=== PATIENT | female | born 1990 | race Caucasian/White ===

== ENCOUNTER → 2021-06-28 12:05 | Observation (INO) ==
[2021-06-28 08:50] LABS: Hematocrit 32.5 % (35.3-44.9); Hemoglobin 10.7 g/dL (11.5-15.4); Mean Corpuscular HGB Conc 32.9 g/dL (31.6-35.5); Mean Corpuscular Hemoglobin 26.8 pg (28.0-33.3); Mean Corpuscular Volume 81.5 fL (83.0-100.0); Mean Platelet Volume 9.4 fL (9.4-12.4); Monocytes # 0.5 K/mcL (0.0-1.3); Platelet Count 288 K/mcL (140-400); Red Blood Count 3.99 M/mcL (3.82-4.97); Red Cell Distribution Width 15.2 % (11.5-14.5); White Blood Count 12.6 K/mcL (4.3-11.1)
[2021-06-28 09:29] LABS: Anisocytosis 1+ (Not Present); Neutrophils # 10.3 K/mcL (1.6-8.9); Platelet Estimate Normal (Normal)
[2021-06-28 09:30] LABS: Reactive Lymphocytes Present (Not Present)
[~2021-06-28 12:05] MED LIST: D5% in Lactated Ringers 1,000 ML IVC SCH; Rho Immune Globulin 1,500 UNIT SYRINGE IM ONE
== END | disposition home or self-care (01) ==
LOC: 1NENULAB
PROVIDERS: ADMIT Registered Nurse; ATTEND Registered Nurse

== ENCOUNTER 2021-09-01 22:10 | Inpatient (IN) ==
[2021-09-01] MEDS ORDERED: miSOPROStoL 25 MCG TABLET PO PRN (22:41)
[2021-09-01] MEDS ORDERED: Azithromycin 500 MG in 0.9 % Sodium Chloride 250 ML IVPB PRN (22:41)
[2021-09-01] MEDS ORDERED: Metoclopramide 10 MG/2 ML VIAL IVP PRN (22:41)
[2021-09-01] MEDS ORDERED: *HR* FentaNYL (PF) 100 MCG/2 ML VIAL IVP PRN (22:41)
[2021-09-01] MEDS ORDERED: Naloxone 0.4 MG/ML INJ IVP PRN (22:41)
[2021-09-01] MEDS ORDERED: *HR* Nalbuphine 10 MG/ML AMPUL IV PRN (22:41)
[2021-09-01] MEDS ORDERED: Famotidine 20 MG/2 ML VIAL IVP PRN (22:41)
[2021-09-01] MEDS ORDERED: Penicillin G Potassium 5,000,000 UNIT in 0.9 % Sodium Chloride Mini Bag 100 ML IVPB ONE (22:45)
[2021-09-01] MEDS: Ringers Solution, Lactated 1,000 ML IVC SCH (23:04)
[2021-09-01 23:23] LABS: Basophils # 0.1 K/mcL (0.0-0.2); Basophils % 0.8 %; Eosinophils # 0.2 K/mcL (0.0-0.6); Eosinophils % 1.5 %; Hematocrit 33.4 % (35.3-44.9); Hemoglobin 11.1 g/dL (11.5-15.4); Lymphocytes # 1.6 K/mcL (0.6-4.6); Lymphocytes % 15.2 %; Mean Corpuscular HGB Conc 33.2 g/dL (31.6-35.5); Mean Corpuscular Volume 81.3 fL (83.0-100.0); Mean Platelet Volume 9.9 fL (9.4-12.4); Monocytes # 0.6 K/mcL (0.0-1.3); Monocytes % 5.4 %; Neutrophils # 7.7 K/mcL (1.6-8.9); Platelet Count 253 K/mcL (140-400); Red Blood Count 4.11 M/mcL (3.82-4.97); Red Cell Distribution Width 15.8 % (11.5-14.5); Segmented Neutrophils % 72.1 %; White Blood Count 10.7 K/mcL (4.3-11.1)
[2021-09-01 23:35] LABS: Amphetamine Screen,Urine Negative ng/mL (Cutoff=1000); Barbiturate Screen,Urine Negative ng/mL (Cutoff=200); Benzodiazepines Screen,Urine Negative ng/mL (Cutoff=200); Cannabinoid Screen,Urine Negative ng/mL (Cutoff = 50); Cocaine Screen,Urine Negative ng/mL (Cutoff= 300); Opiate Screen,Urine Negative ng/mL (Cutoff=300); Phencyclidine Screen,Urine Negative ng/mL (Cutoff=25)
[2021-09-01 23:44] LABS: Glucose 95 mg/dL (70-105)
[2021-09-02 04:51] LABS: Alanine Aminotransferase 24 Units/L (7-52); Aspartate Amino Transferase 22 Units/L (13-39); BUN/Creatinine Ratio 14 (6-26); Blood Urea Nitrogen 6 mg/dL (6-20); Creatinine,Urine 36 mg/dL; Lactate Dehydrogenase 153 Units/L (140-271); Protein/Creatinine Ratio,Urine 0.25 mg/mg (0.00-0.20); Uric Acid 5.5 mg/dL (2.3-7.6); eGFR For African Americans > 60 (> 60); eGFR For Non-African Americans > 60 (> 60)
[2021-09-02] MEDS: Penicillin G Potassium 2,500,000 UNIT/105 ML MLS IVPB SCH ×3 (04:53→13:32)
[2021-09-02] MEDS: Oxytocin 30 UNIT/503 ML BAG IVC SCH ×2 (04:57→20:06)
[2021-09-02] MEDS ORDERED: EPHEDrine 50 MG/ML VIAL IVP PRN (05:46)
[2021-09-02] MEDS ORDERED: Epidural Premix (fent/bupiv) 110 ML EP SCH (06:00)
[2021-09-02] MEDS: Ringers Solution, Lactated 1,000 ML IVC SCH (09:03)
[2021-09-02] MEDS: Ondansetron 4 MG/2 ML VIAL IVP PRN ×2 (11:16→18:49)
[2021-09-02] MEDS ORDERED: *HR* Ropivacaine/PF 0.5% 20 ML VIAL ONE (14:51)
[2021-09-02] MEDS ORDERED: Measles/Mumps/Rubella Vacc 0.5 ML VIAL SQ PRN (19:54)
[2021-09-02] MEDS ORDERED: Lanolin 7 G OINT...G. TP PRN (19:54)
[2021-09-02] MEDS ORDERED: Benzocaine/Menthol 56 GM AEROSOL SPRAY TP PRN (19:54)
[2021-09-02] MEDS ORDERED: Rho Immune Globulin 1,500 UNIT SYRINGE IM PRN (19:54)
[2021-09-02] MEDS ORDERED: Ondansetron ODT 4 MG TAB.RAPDIS SL PRN (19:54)
[2021-09-03] MEDS: Acetaminophen 325 MG TABLET PO SCH ×4 (00:55→23:24)
[2021-09-03] MEDS: Ibuprofen 600 MG TABLET PO SCH ×3 (04:09→21:11)
[2021-09-03 04:45] LABS: Basophils # 0.1 K/mcL (0.0-0.2); Basophils % 0.4 %; Eosinophils # 0.1 K/mcL (0.0-0.6); Eosinophils % 0.7 %; Hematocrit 30.5 % (35.3-44.9); Hemoglobin 9.9 g/dL (11.5-15.4); Immature Granulocytes % 2.6 % (0-4); Lymphocytes # 1.5 K/mcL (0.6-4.6); Lymphocytes % 10.7 %; Mean Corpuscular HGB Conc 32.5 g/dL (31.6-35.5); Mean Corpuscular Hemoglobin 26.4 pg (28.0-33.3); Mean Corpuscular Volume 81.3 fL (83.0-100.0); Monocytes # 0.8 K/mcL (0.0-1.3); Monocytes % 6.2 %; Neutrophils # 10.7 K/mcL (1.6-8.9); Platelet Count 241 K/mcL (140-400); Red Blood Count 3.75 M/mcL (3.82-4.97); Red Cell Distribution Width 15.9 % (11.5-14.5); Segmented Neutrophils % 79.4 %; White Blood Count 13.5 K/mcL (4.3-11.1)
[2021-09-03] MEDS: Prenatal Vit/FA 1 EACH TABLET PO SCH (09:11)
[2021-09-03 20:29] VITALS: O2SAT 99
[2021-09-04] MEDS: Ibuprofen 600 MG TABLET PO SCH (04:41)
[2021-09-04 04:49] VITALS: PULSE 89
[2021-09-04] MEDS: Acetaminophen 325 MG TABLET PO SCH ×2 (05:57→08:30)
[2021-09-04 07:17] VITALS: BP 135/81; TEMP 97.9
[2021-09-04] MEDS: Prenatal Vit/FA 1 EACH TABLET PO SCH (08:30)
== END 2021-09-04 08:54 | disposition home or self-care (01) | DRG 807 ==
LOC: 1NENULAB 22:10 → 1NENUOBS 09-02 19:53
PROVIDERS: ADMIT Obstetrics & Gynecology; ATTEND Obstetrics & Gynecology

== ENCOUNTER 2021-09-08 12:57 | Observation (INO) ==
[2021-09-08 13:43] VITALS: TEMP 98
[2021-09-08 13:45] VITALS: O2SAT 97
[2021-09-08 13:55] VITALS: PULSE 88
[2021-09-08 17:00] LABS: Hematocrit 36.4 % (35.3-44.9); Hemoglobin 11.7 g/dL (11.5-15.4); Mean Corpuscular HGB Conc 32.1 g/dL (31.6-35.5); Mean Corpuscular Volume 84.1 fL (83.0-100.0); Mean Platelet Volume 9.9 fL (9.4-12.4); Platelet Count 423 K/mcL (140-400); Red Blood Count 4.33 M/mcL (3.82-4.97); Red Cell Distribution Width 15.6 % (11.5-14.5); White Blood Count 11.8 K/mcL (4.3-11.1)
[2021-09-08 17:07] LABS: Alanine Aminotransferase 55 Units/L (7-52); Aspartate Amino Transferase 27 Units/L (13-39); BUN/Creatinine Ratio 17 (6-26); Blood Urea Nitrogen 11 mg/dL (6-20); Lactate Dehydrogenase 222 Units/L (140-271); Uric Acid 8.3 mg/dL (2.3-7.6); eGFR For African Americans > 60 (> 60); eGFR For Non-African Americans > 60 (> 60)
[2021-09-08 17:37] LABS: Eosinophils # 0.5 K/mcL (0.0-0.6); Lymphocytes # 2.1 K/mcL (0.6-4.6); Monocytes # 0.9 K/mcL (0.0-1.3); Neutrophils # 7.8 K/mcL (1.6-8.9); Platelet Estimate Normal (Normal); Reactive Lymphocytes Present (Not Present)
[2021-09-08 17:58] VITALS: BP 126/70
[2021-09-09] MEDS ORDERED: NIFEdipine XL (24 HR) 60 MG TAB.ER.24 PO SCH (09:00)
== END 2021-09-08 18:25 | disposition home or self-care (01) ==
LOC: 1NENUPED
PROVIDERS: ADMIT Obstetrics & Gynecology; ATTEND Obstetrics & Gynecology